=== PATIENT | male | born 1980 | race African-American/Black ===

== ENCOUNTER 2018-01-30 10:56 | Emergency (ER) | payer OTHER ==
[~2018-01-30] VITALS: Ht 177.8 cm; Wt 72.7 kg
[2018-01-30 11:17] VITALS: BP 100/79
== END 2018-01-30 12:19 | disposition home or self-care (01) ==
LOC: ED 12:00
DX: K02.9 Dental caries, unspecified (principal); J02.9 Acute pharyngitis, unspecified
CPT/HCPCS: 99283